=== PATIENT | male | born 1950 | race Caucasian/White ===

== ENCOUNTER 2017-03-03 03:45 | Emergency (ER) | payer OTHER ==
--- NOTE | 2017-03-03 03:57 | ED UPPER/LOWER EXTREMITY COMPL ---
See Addendum History of Present Illness General Chief Complaint: Lower Extremity Injury Stated Complaint: BIBA FALL KNEE PAIN Source: patient, family, old records, EMS Exam Limitations: no limitations Vital Signs & Intake/Output Vital Signs & Intake/Output Vital Signs Date Time Temp Pulse Resp B/P Pulse O2 O2 Flow FiO2 Ox Delivery Rate 03/04 1004 97.9 78 20 123/62 95 Room Air 03/04 0551 97.2 94 22 134/71 03/03 1926 97.9 80 20 150/86 Room Air 03/03 1719 Room Air 03/03 1556 97.6 82 20 147/79 03/03 1556 97.6 82 20 147/79 95 Room Air 03/03 1410 98.9 88 18 132/81 95 Room Air ED Intake and Output 03/04 0000 03/03 1200 Intake Total Output Total 300 200 Balance -300 -200 Output, Urine 300 200 Allergies Coded Allergies: No Known Allergies (03/03/17) Triage Note: PER PT AT [facility] AND FELL, THEN UNABLE TO WT [facility] AFTERTHAT ON RLE. PT WAS SEEN AT HOSPITAL NEAR [facility]. GIVEN OXYCODONE IR ABOUT 2300, PAIN CURRENTLY 2/10. BUT REMAINS UNABLE TO [facility] HAS SPLINT IN PLACE FROM OTHER HOSPITAL Triage Nurses Notes Reviewed? yes Onset: Evening Duration: hour(s):, constant, continues in ED, getting worse Timing: recent history Severity: severe Pain/Injury Location: Right: Knee, Thigh. Method of Injury: direct blow, fall Modifying Factors: Improves With: pain medication, rest. Worsens With: movement. Associated Symptoms: GCS 15 since, stiffness HPI: 10 hours prior to admission after dinner patient fell and [place] onto his knees. He was seen at [facility] with knee xrays negative for fx. In the garage while walking with his walker he lost balance secondary to increased pain in the right knee and fell onto it unable to get up. He complains of right knee and femur pain sharp constant severe nonradiating. He denies fever chills nausea vomiting diarrhea abdominal pain chest pain shortness breath headache dysuria rash bleeding other injury. (MARIANNE COLLINS,SHRUTI) Reconcile Medications Celecoxib 200 MG CAPSULE 1 CAP PO DAILY PAIN (Reported) Fesoterodine Fumarate (Toviaz) 8 MG TAB.ER.24H 1 TAB PO DAILY BLADDER ( Reported) Lisinopril 5 MG TABLET 1 TAB PO DAILY HTN (Reported) Lovastatin 20 MG TABLET 1 TAB PO DAILY CHOL (Reported) Mirabegron (Myrbetriq) 50 MG TAB.ER.24H 1 TAB PO DAILY URINE (Reported) Niacin (Niaspan) 1,000 MG TAB.ER.24H 1 TAB PO QPM CHOLESTEROL (Reported) (NERY COLLINS,DARRICK) Past History Travel History Traveled to [place] past 21 day No Medical History Any Pertinent Medical History? see below for history Neurological: NONE EENT: NONE Cardiovascular: HTN, LOW CHOL Respiratory: NONE Gastrointestinal: NONE Hepatic: NONE Renal: BLADDER PROBLEMS Musculoskeletal: NONE Psychiatric: NONE Endocrine: NONE Surgical History Surgical History: non-contributory Psychosocial History Tobacco Use: Never used Family History Hx Contributory? No (SHRUTI LOPES MD) Review of Systems Review of Systems Constitutional: Reports: no symptoms. EENTM: Reports: no symptoms. Respiratory: Reports: no symptoms. Cardiovascular: Reports: no symptoms. Gastrointestinal/Abdominal: Reports: no symptoms. Genitourinary: Reports: no symptoms. Musculoskeletal: Reports: see HPI, joint pain. Skin: Reports: no symptoms. Neurological/Psychological: Reports: no symptoms. Hematologic/Endocrine: Reports: no symptoms. Immunological: Reports: no symptoms. All Other Systems: Reviewed and Negative (SHRUTI LOPES MD) Physical Exam Physical Exam General Appearance: well developed/nourished, alert, awake, anxious, moderate distress, obese Head: atraumatic, normal appearance Eyes: Bilateral: normal appearance, PERRL, EOMI. Ears, Nose, Throat: normal pharynx, normal ENT inspection, hearing grossly normal Neck: normal inspection, supple, full range of motion, no midline tenderness Cardiovascular/Respiratory: normal breath sounds, normal peripheral pulses, regular rate/rhythm, no respiratory distress Peripheral Pulses: 4+ carotid (R), 4+ carotid (L) Back: normal inspection, normal range of motion Shoulder Left: normal range of motion, normal inspection Shoulder Right: normal range of motion, normal inspection Elbow Left: normal range of motion, normal inspection Elbow Right: normal range of motion, normal inspection Hand Left: normal inspection, normal range of motion Hand Right: normal inspection, normal range of motion Upper Extremity Reflexes: 2+: bicep (R), bicep (L). Leg Left: normal range of motion, normal inspection Leg Right: tenderness, bone tenderness, soft tissue tenderness, limited range of motion Hip Left: normal range of motion, normal inspection Hip Right: normal range of motion, normal inspection Knee Left: normal range of motion, normal inspection Knee Right: tenderness, bone tenderness, soft tissue tenderness, limited range of motion Knee Ligaments Right: pain anterior drawer, pain posterior drawer, pain medial stress, pain lateral stress Foot Left: normal inspection, normal range of motion Foot Right: normal inspection, normal range of motion Lower Extremity Reflexes: 2+: knee (L), ankle (L). Neurologic/Tendon: normal sensation, normal motor functions, normal tendon functions Skin: normal color, warm/dry, rash (scrotal, pannus) Lymphatic: no anterior cervical anabel (MARIANNE COLLINS,SHRUTI) Progress Differential Diagnosis: contusion, fracture, sprain Plan of Care: Current Medications Sig/Viri Start time Last Medication Dose Stop Time Status Admin Lisinopril 5 MG DAILY 03/04 1328 UNVr (Prinivil) 7:10 am Patient signed out to me by Dr. Lopes, pending case managment, physical therapy. 11 AM WILL NEED PLACEMENT PER PT. CASE MANAGEMENT WORKING TO PLACE PATIENT. (NERY COLLINS,DARRICK) Diagnostic Imaging: Viewed by Me: Radiology Read. Discussed w/RAD: Radiology Read. Radiology Impression: Large knee joint effusion. Focus of calcification along the superior aspect of the joint effusion is nonspecific, but could correspond to an avulsed portion of the osteophytes about the patellofemoral compartment secondary to a quadriceps tendon tear. Correlate with patient physical exam and history. Consider correlation with MRI if deemed clinically appropriate. Degenerative change to the right knee and hip. Hand-Off Endorsed To: DARRICK GABRIEL MD Endorsed Time: 07 Pending: consult (PT/CM) Comments: Patient unable to move about in bed without assist of 2. (SHRUTI LOPES MD) Hand-Off Endorsed To: BEE SHANNON MD Endorsed Time: 1916 Pending: consult (PLACEMENT IN REHAB) (DARRICK GABRIEL MD) Comments: 03/04/17 7:05a pt signed out to me by dr shannon at shift changeover. (TAMMI COLLINS,ESTELLE Michaels) Departure Departure Disposition: STILL A PATIENT Condition: Stable Clinical Impression Primary Impression: Effusion, right knee Secondary Impressions: Fall at home Qualifiers: Encounter type: initial encounter Qualified Codes: W19.XXXA - Unspecified fall, initial encounter; Y92.099 - Unspecified place in other non- institutional residence as the place of occurrence of the external cause Leukocytosis Qualifiers: Leukocytosis type: unspecified Qualified Code: D72.829 - Elevated white blood cell count, unspecified Multifactorial gait disorder Referrals: MELBA COLLINS,LATOYA Sumner (PCP/Family) Departure Forms: Customer Survey General Discharge Information (SHRUTI LOPES MD) PA/PROTEIN PURIFICATION SCIENTIST Co-Sign Statement Statement: ED Attending supervision documentation- [] I saw and evaluated the patient. I have also reviewed all the pertinent lab results and diagnostic results. I agree with the findings and the plan of care as documented in the PA's/PROTEIN PURIFICATION SCIENTIST's documentation. x[] I have reviewed the ED Record and agree with the PA's/PROTEIN PURIFICATION SCIENTIST's documentation. [] Additions or exceptions (if any) to the PAs/PROTEIN PURIFICATION SCIENTIST's note and plan are summarized below: [] (KENRICK COLLINS,BEE Montejo) [] I saw and evaluated the patient. I have also reviewed all the pertinent lab results and diagnostic results. I agree with the findings and the plan of care as documented in the PA's/PROTEIN PURIFICATION SCIENTIST's documentation. x[] I have reviewed the ED Record and agree with the PA's/PROTEIN PURIFICATION SCIENTIST's documentation. [] Additions or exceptions (if any) to the PAs/PROTEIN PURIFICATION SCIENTIST's note and plan are summarized below: [] (BEE SHANNON MD) (BEE SHANNON MD)
[2017-03-03] MEDS ORDERED: LOVASTATIN20 M1 PO (05:22)
[2017-03-03] MEDS ORDERED: MYRBETRIQ50 M1 PO (05:22)
[2017-03-03] MEDS ORDERED: LISINOPRIL5 M1 PO (05:23)
--- NOTE | 2017-03-03 05:30 | RADIOLOGY REPORT ---
EXAMINATIONS: XR KNEE, RIGHT AND RIGHT FEMUR 2 VIEWS CLINICAL INFORMATION: Right knee pain after fall. COMPARISON: None TECHNIQUE: AP and lateral views of the right knee. AP and lateral views of the right femur are provided. FINDINGS: There are no fractures or dislocations. There is a large knee joint effusion present. There is adjacent soft tissue swelling. There is a focus of calcification present overlying the superior aspect of the joint effusion. There is narrowing of the medial, lateral and patellofemoral compartments with osteophyte formation. The right femoral head is seated within a well-formed acetabulum. There is narrowing to the right hip joint space. IMPRESSION: Large knee joint effusion. Focus of calcification along the superior aspect of the joint effusion is nonspecific, but could correspond to an avulsed portion of the osteophytes about the patellofemoral compartment secondary to a quadriceps tendon tear. Correlate with patient physical exam and history. Consider correlation with MRI if deemed clinically appropriate. Degenerative change to the right knee and hip.
[2017-03-03 05:43] LABS: ABSOLUTE BASOPHIL COUNT 0 /CUMM (0.0-0.2); ABSOLUTE EOSINOPHIL COUNT 0.1 /CUMM (0.0-0.7); ABSOLUTE GRANULOCYTE CT 11.3 /CUMM (1.4-6.5); ABSOLUTE LYMPH COUNT 1.6 /CUMM (1.2-3.4); ABSOLUTE MONOCYTE COUNT 1.1 /CUMM (0.10-0.60); BASOPHIL % 0.3 % (0.0-2.0); GRANULOCYTE % 79.6 % (42.2-75.2); HEMATOCRIT 40.5 % (42-52); MEAN CORPUSCULAR HGB 27.6 PG (27.0-31.0); MEAN CORPUSCULAR HGB CONC 33.1 G/DL (33.0-37.0); MEAN CORPUSCULAR VOLUME 83.4 FL (80.0-94.0); MEAN PLATELET VOLUME 8.1 FL (7.4-10.4); PLATELET COUNT 234 /CUMM (130-400); RBC DISTRIBUTION WIDTH 14.4 % (11.5-14.5); RED BLOOD CELL CT 4.85 /CUMM (4.70-6.10); WHITE BLOOD CELL COUNT 14.2 /CUMM (4.8-10.8)
[2017-03-03] MEDS ORDERED: CELECOXIB200 M1 PO (15:21)
[2017-03-03] MEDS ORDERED: NIASPAN1000 M1 PO (15:22)
[2017-03-03] MEDS ORDERED: TOVIAZ8 M1 PO (15:25)
[2017-03-04 10:04] VITALS: BP 123/62
[2017-03-20] MEDS ORDERED: HYDROCODON-ACE1 EAC2 (15:46)
== END 2017-03-04 15:05 ==
LOC: ERH 03:45
PROVIDERS: Emergency Medicine
DX: M25.461 Effusion, right knee (principal); D72.829 Elevated white blood cell count, unspecified; R26.9 Unspecified abnormalities of gait and mobility; I10 Essential (primary) hypertension; W19.XXXA Unspecified fall, initial encounter; Y93.9 Activity, unspecified; Y92.9 Unspecified place or not applicable
CPT/HCPCS: 73552; 73562-RT; 81001; 97112-GP; 97161-GP; 97530-GP

== ENCOUNTER → 2017-03-22 | Day surgery (SDC) | payer OTHER ==
[~2017-03-22] VITALS: Ht 188 cm; Wt 165.6 kg
[~2017-03-22] MED LIST: CELECOXIB200 M1 PO; HYDROCODON-ACE1 EAC2; LISINOPRIL5 M1 PO; LOVASTATIN20 M1 PO; MYRBETRIQ50 M1 PO; NIASPAN1000 M1 PO; TOVIAZ8 M1 PO
--- NOTE | 2017-03-28 11:30 | Operative Report ---
Operative/Inv Procedure Report Surgery Date: 03/22/17 Name of Procedure: Quadriceps tendon repair Pre-Operative Diagnosis: Right quadriceps tendon rupture Post-Operative Diagnosis: Name Estimated Blood Loss: scant Surgeon/Thermo Cementing Folder Operator: SINDY JIN MD Anesthesia: general endotracheal tube IV Fluids: See anesthesia record Drains: nnone Specimens: None Complications: None Condition: Stable Operative Indication: Patient is a 66-year-old male with a ruptured quadriceps tendon which was confirmed on MRI. He is indicated for surgical fixation. Risks and benefits of procedure discussed with the patient detail. Operative/Procedure Note Note: Once informed consent was obtained and the correct limb was identified patient brought to operating room present table supine position. Administration of general endotracheal anesthesia the patient's right leg had a thigh tourniquet placed was prepped and draped usual sterile fashion. To begin the procedure standard midline incision was made and sharp dissection through skin and subcutaneous tissue. The quadriceps tendon was identified and the rupture was identified. The prepatellar bursa was excised. Once this was done the insertion site of the quadriceps tendon on the patella was freshened and tissue was removed until we had a bleeding bony surface on the superior pole of the patella. Next 2 #5 FiberWire suture passer to questions tendon using modified Krakw suture configuration. Drill holes were then made in the patella 3 drill holes were made through the patella passing from the superior pole to the inferior pole of patella. The suture limbs were then passed through the drill holes and the sutures were tied over bone at the inferior pole of patella. This was done within the knee in full extension. Good approximation of the tendon back to the superior pole of the patella was obtained. Stable repair was obtained. Once this was done the wound was pulse lavaged. The medial and lateral retinacular tears were repaired with #1 Vicryl sutures. The quadriceps tendon repair was oversewn with a #1 Vicryl interrupted suture. The subcutaneous tissues closed with #1 Vicryl and 2-0 Vicryl sutures and the skin was closed with channing. Sterile dressing was applied and the patient was placed in a knee immobilizer and awakened. The patient was taken to the recovery room in stable condition.
== END ==
LOC: STS 01:42
DX: M66.851 Spontaneous rupture of other tendons, right thigh (principal); I10 Essential (primary) hypertension; R33.9 Retention of urine, unspecified; E78.6 Lipoprotein deficiency; E66.9 Obesity, unspecified
CPT/HCPCS: J0131; J0690; J1100; J1885; J2250; J2405